=== PATIENT | male | born 1955 | race Caucasian/White ===

== ENCOUNTER 2017-02-06 18:34 | Emergency (ER) | payer SELFPAY ==
[2017-02-06 19:27] VITALS: BP 133/97
[2017-02-06] MEDS ORDERED: XYLOCAINE 1% 20 mL INFILTRATI ONE (20:07)
[2017-02-06] MEDS ORDERED: BOOSTRIX IM ONE (20:07)
--- NOTE | 2017-02-06 20:09 | Emergency Department Report ---
ED Head Trauma HPI - General Chief complaint: Wound/Laceration Stated complaint: LT EAR INJURY Time Seen by Provider: 02/06/17 19:55 Source: patient Mode of arrival: Ambulatory Limitations: Language Barrier - History of Present Illness Initial comments: Patient comes in the ER today with complaints of a laceration to his left ear. Patient is unsure as to how he did this. Patient states that his father is in bad health and he drank a lot of tequila last night and does not remember much. Patient states that he woke up this morning with the injury to his ear. Patient further notes that he does not usually drink alcohol. Patient denies other injuries other than pain in his right lower back and head. Patient is unsure of last tetanus shot. MD Complaint: head injury -: days(s) (1) - Related Data Previous Rx's Medication Instructions Recorded Last Taken Type Cephalexin [Keflex] 500 mg PO TID #30 capsule 02/06/17 Unknown Rx Cyclobenzaprine HCl [Flexeril 5 MG 5 mg PO TID PRN #15 tab 02/06/17 Unknown Rx TAB] traMADol [Ultram 50 MG tab] 50 mg PO Q6HR PRN #15 tablet 02/06/17 Unknown Rx Allergies/Adverse reactions: Allergies Allergy/AdvReac Type Severity Reaction Status Date / Time No Known Allergies Allergy Unverified 02/06/17 19:34 ED Review of Systems ROS: Stated complaint: LT EAR INJURY Other details as noted in HPI Constitutional: denies: chills, fever Eyes: denies: eye pain, eye discharge, vision change ENT: denies: ear pain, throat pain Respiratory: denies: cough, shortness of breath, wheezing Cardiovascular: denies: chest pain, palpitations Endocrine: no symptoms reported Gastrointestinal: denies: abdominal pain, nausea, diarrhea Genitourinary: denies: urgency, dysuria Musculoskeletal: back pain, myalgia. denies: joint swelling, arthralgia Skin: denies: rash, lesions Neurological: headache. denies: weakness, numbness, paresthesias, confusion, abnormal gait Psychiatric: denies: anxiety, depression Hematological/Lymphatic: denies: easy bleeding, easy bruising ED Past Medical Hx - Past Medical History Hx Hypertension: Yes - Surgical History Additional Surgical History: VALVE DISORDER (DEFIBRILLATOR TO LEFT CHEST) - Social History Smoking Status: Never Smoker Substance Use Type: Alcohol - Medications Home Medications: Home Medications Medication Instructions Recorded Confirmed Last Taken Type Cephalexin [Keflex] 500 mg PO TID #30 capsule 02/06/17 Unknown Rx Cyclobenzaprine HCl [Flexeril 5 MG 5 mg PO TID PRN #15 tab 02/06/17 Unknown Rx TAB] traMADol [Ultram 50 MG tab] 50 mg PO Q6HR PRN #15 tablet 02/06/17 Unknown Rx ED Physical Exam - General Limitations: Language Barrier General appearance: alert, in no apparent distress - Head Head exam: Present: normocephalic - Eye Eye exam: Present: normal appearance, PERRL, EOMI Pupils: Present: normal accommodation - ENT ENT exam: Present: mucous membranes moist, TM's normal bilaterally, other ( through and through laceration noted to left earlobe) - Neck Neck exam: Present: normal inspection, tenderness (mild bilateral muscle tenderness.), full ROM. Absent: lymphadenopathy - Respiratory Respiratory exam: Present: normal lung sounds bilaterally. Absent: respiratory distress - Cardiovascular Cardiovascular Exam: Present: regular rate, normal rhythm. Absent: systolic murmur, diastolic murmur, rubs, gallop - GI/Abdominal GI/Abdominal exam: Present: soft, normal bowel sounds. Absent: distended, tenderness - Rectal Rectal exam: Present: deferred - Extremities Exam Extremities exam: Present: normal inspection, full ROM, normal capillary refill. Absent: tenderness, pedal edema, joint swelling - Back Exam Back exam: Present: normal inspection, full ROM, tenderness (right lateral muscle tenderness), muscle spasm. Absent: CVA tenderness (R), CVA tenderness (L ), vertebral tenderness - Neurological Exam Neurological exam: Present: alert, oriented X3, CN II-XII intact, normal gait, reflexes normal. Absent: motor sensory deficit - Psychiatric Psychiatric exam: Present: normal affect, normal mood - Skin Skin exam: Present: warm, dry, intact, normal color. Absent: rash ED Course Vital Signs 02/06/17 02/06/17 19:19 19:34 Temperature 98.5 F 98.5 F Pulse Rate 97 H 97 H Respiratory 20 20 Rate Blood Pressure 133/97 Blood Pressure 133/97 [Right] O2 Sat by Pulse 97 97 Oximetry - Laceration /Wound Repair Left Lower Ear Wound Location: head (left external ear) Wound Length (cm): 4 Wound's Depth, Shape: irregular (through and through laceration at the base of cartilage and lobe. Laceration is very irregular and flap-like) Wound Explored: wound explored without any visualization of foreign bodies. Irrigated w/ Saline (ccs): 60 Betadine Prep?: Yes Anesthesia: 1% Lidocaine Volume Anesthetic (ccs): 4 Wound Repaired With: sutures Suture Size/Type: 5:0, proline Number of Sutures: 11 Layer Closure?: Yes Deep Layer Suture Size/Type: 5:0, gut Number Deep Layer Sutures: 4 Sterile Dressing Applied?: No Progress: Patient tolerated procedure very well without any complications. - Radiology Data Radiology results: report reviewed X-ray of C-spine reveals loss of lordosis consistent with muscle spasm. No misalignment of vertebral bodies. No loss of disc space. No anterior soft tissue swelling. X-ray of lumbar spine reveals no acute pathology. No loss of disc space. No bone fractures. CT scan of head reveals no acute intracranial hemorrhage, midline shift, or pathologic extra axial fluid collection. Ventricles and cisterns are normal in size and configuration for the patient's age. Mild chronic small vessel ischemic disease. 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 Calvarium grossly intact. Mild mucosal thickening of the paranasal sinuses. Mastoid air cells are clear. Orbits are grossly unremarkable. - Medical Decision Making Laceration of left ear repair without any complications. Patient tolerated procedure very well. Imaging results reviewed and discussed with patient in room. All information obtained through a kosher dietary service manager. I will give patient referral to ENT for further evaluation or he is to return here to the ER in 10 days for suture removal. Patient is in agreement with treatment plan and patient is stable for discharge. Critical care attestation.: If time is entered above; I have spent that time in minutes in the direct care of this critically ill patient, excluding procedure time. ED Disposition Clinical Impression: Laceration of ear Qualifiers: Encounter type: initial encounter Laterality: left Qualified Code(s): S01.312A - Laceration without foreign body of left ear, initial encounter Acute head injury Qualifiers: Encounter type: initial encounter Qualified Code(s): S09.90XA - Unspecified injury of head, initial encounter Disposition: DISCHARGED TO HOME OR SELFCARE Is pt being admited?: No Does the pt Need Aspirin: No Condition: Good Instructions: Laceration (ED), Minor Head Injury (ED), Cervical Spine Strain ( ED), Low Back Strain (ED) Prescriptions: Cephalexin [Keflex] 500 mg PO TID #30 capsule Cyclobenzaprine HCl [Flexeril 5 MG TAB] 5 mg PO TID PRN #15 tab PRN Reason: Muscle Spasm traMADol [Ultram 50 MG tab] 50 mg PO Q6HR PRN #15 tablet PRN Reason: Pain Referrals: PRIMARY CAREMD [Primary Care Provider] - 3-5 Days JANICE DIAZ MD [Staff Physician] - 3-5 Days (ENT doctor) Time of Disposition: 22:49 Print Language: LAO
--- NOTE | 2017-02-06 20:59 | XRay Report ---
FINAL REPORT EXAM: XR SPINE CERVICAL 2-3V HISTORY: head injury COMPARISON: None available. FINDINGS: Four total images of the cervical spine obtained. Cervical vertebral body heights are preserved. Moderate loss of disc height C4-C5 through C7-T1 levels with endplate osteophyte. Odontoid process grossly intact. Moderate facet changes throughout the cervical spine. There is straightening of the normal lordotic curvature which may relate to patient positioning or muscle spasm. IMPRESSION: Moderate degenerative changes. There is straightening of the normal lordotic curvature which may relate to patient positioning or muscle spasm. Cervical vertebral body heights are preserved.
--- NOTE | 2017-02-06 21:00 | XRay Report ---
FINAL REPORT EXAM: XR SPINE LUMBOSACRAL 2-3V HISTORY: fall, low back pain COMPARISON: None available. FINDINGS: Three views of the lumbar spine obtained. Moderate loss of disc height throughout the majority lumbar spine with endplate osteophyte. Pedicles are intact. No spondylolisthesis. IMPRESSION: Lumbar vertebral body heights are preserved. Moderate degenerative changes.
--- NOTE | 2017-02-06 21:12 | Cat Scan Report ---
FINAL REPORT EXAM: CT HEAD/BRAIN WO CON HISTORY: Head injury COMPARISON: None available. TECHNIQUE: Axial images obtained skull base through vertex. FINDINGS: No acute intracranial hemorrhage, midline shift or pathologic extra axial fluid collection. Ventricles and cisterns are normal in size and configuration for the patient's age. Mild chronic small vessel ischemic disease. Remote left parietal lobe infarct measuring 4.4 x 2.6 centimeters in axial dimension. Otherwise, lake-white differentiation preserved. Calvarium grossly intact. Mild mucosal thickening of the paranasal sinuses. Mastoid air cells are clear. Orbits are grossly unremarkable. IMPRESSION: No grossly acute intracranial abnormality. Mild chronic small vessel ischemic disease and remote left parietal lobe infarct.
[2017-02-06] MEDS ORDERED: TRIPLE ANTIBIOTIC TP ONE (22:51)
[2017-02-07] MEDS ORDERED: TRIPLE ANTIBIOTIC TP SCH (08:00)
== END 2017-02-06 22:57 | disposition home or self-care (01) ==
LOC: ED 18:34
DX: S09.90XA Unspecified injury of head, initial encounter (principal); S01.312A Laceration without foreign body of left ear, initial encounter; I10 Essential (primary) hypertension; X58.XXXA Exposure to other specified factors, initial encounter; Y93.89 Activity, other specified; Y99.8 Other external cause status; Y92.89 Other specified places as the place of occurrence of the external cause
CPT/HCPCS: 70450; 72040; 72100; 90471; 90715; A6250

== ENCOUNTER 2017-02-16 12:05 | Emergency (ER) | payer SELFPAY ==
[2017-02-16 12:22] VITALS: BP 130/85
--- NOTE | 2017-02-16 13:35 | Emergency Department Report ---
Suture/Staple Removal - HPI Chief Complaint: Laceration/Recheck/Suture Stated Complaint: SUTURE REMOVAL Time Seen by Provider: 02/16/17 13:12 When Sutures or Parrish Placed: 8-10 Days Ago Wound Location: L ear lobe ED Review of Systems ROS: Stated complaint: SUTURE REMOVAL Other details as noted in HPI Comment: All other systems reviewed and negative Constitutional: denies: fever ENT: denies: ear pain Cardiovascular: denies: chest pain Gastrointestinal: denies: abdominal pain Musculoskeletal: denies: back pain ED Past Medical Hx - Past Medical History Previous Medical History?: Yes Hx Hypertension: Yes Additional medical history: left ear lac - Surgical History Past Surgical History?: Yes Hx Open Heart Surgery: Yes Additional Surgical History: VALVE DISORDER (DEFIBRILLATOR TO LEFT CHEST) - Social History Smoking Status: Never Smoker Substance Use Type: Alcohol - Medications Home Medications: Home Medications Medication Instructions Recorded Confirmed Last Taken Type Cephalexin [Keflex] 500 mg PO TID #30 capsule 02/06/17 Unknown Rx Cyclobenzaprine HCl [Flexeril 5 MG 5 mg PO TID PRN #15 tab 02/06/17 Unknown Rx TAB] traMADol [Ultram 50 MG tab] 50 mg PO Q6HR PRN #15 tablet 02/06/17 Unknown Rx Suture Removal Exam - Exam General: Vital signs noted. No distress. Alert and acting appropriately. Wound: No Pathologic Erythema, No Tenderness, No Drainage, No Pus, No Wound Dehiscence Other Systems: All other systems reviewed and are unremarkable. ED Course Vital Signs 02/16/17 12:18 Temperature 98.4 F Pulse Rate 68 Respiratory 20 Rate Blood Pressure 130/85 O2 Sat by Pulse 99 Oximetry - Reevaluation(s) Reevaluation #1: 02/16/17 14:24 PT thought a suture was left in ear lobe. pt had small scab to post ear lobe, scab removed. no suture visualized. pt aware no retained suture. - Procedure Description Procedures done: 11 sutures removed from L earlobe removed. skin remains intact - Pulse Oximetry Interpretation Digit-Finger Initial Pulse Oximetry Readin Actions Taken: none ED Recheck MDM - Differential Diagnosis Suture/Staple Removal Critical Care Time: No Critical care attestation.: If time is entered above; I have spent that time in minutes in the direct care of this critically ill patient, excluding procedure time. ED Disposition Clinical Impression: Visit for suture removal Disposition: TO HOME OR SELFCARE Is pt being admited?: No Does the pt Need Aspirin: No Condition: Stable Instructions: Suture Removal (ED) Referrals: PRIMARY CAREMD [Primary Care Provider] - 3-5 Days CODY MO MD [Staff Physician] - 3-5 Days [facility] [Outside] - 3-5 Days [facility] [Outside] - 3-5 Days Forms: Work/School Release Form(ED) Time of Disposition: 13:38
[2017-02-16] MEDS ORDERED: TRIPLE ANTIBIOTIC TP ONE (13:54)
== END 2017-02-16 14:28 | disposition home or self-care (01) ==
LOC: ED 12:05
DX: Z48.02 Encounter for removal of sutures (principal); I10 Essential (primary) hypertension
CPT/HCPCS: A6250